=== PATIENT | male | born 1975 | race Caucasian/White ===

== ENCOUNTER 2016-07-14 09:55 | Emergency (ER) | payer MEDICARE ==
[2013-07-01 12:40] VITALS: BMI 22.6
[~2016-07-14 09:55] MED LIST: DILAUDID2 MG PO; HYDROCODONE-APA1 TA3 PO; NORCO 10/325 TA1 TA1 PO; PRAVACHOL20 MG PO; SOMA350 MG PO; TYLENOL325 MG PO; XANAX1 MG PO
[2016-07-14 11:00] LABS: BASOPHILS 0.4 % (0.0-2.0); EOSINOPHILS 0.8 % (0-7); HEMOGLOBIN 15.1 g/dL (13.5-17.5); IMMATURE GRANULOCYTES 1.6 % (0-5); LYMPHOCYTES 20.9 % (15-50); MCH 31.5 pg (26.0-34.0); MCHC 33.6 g/dL (31.0-37.0); MCV 93.8 fL (80.0-100.0); MEAN PLATELET VOLUME 9.8 fL (7.4-10.4); MONOCYTES 7.6 % (2-11); NEUTROPHILS 68.7 % (40-80); PLATELET COUNT 312 10x3/uL (130-400); RDW 13.9 % (11.5-14.5); WBC 12.6 10x3/uL (4.8-10.8)
[2016-07-14 11:04] LABS: APPEARANCE HAZY (CLEAR); BACTERIA MODERATE /hpf (NONE SEEN); BILIRUBIN NEGATIVE (NEGATIVE); COLOR YELLOW (YELLOW); GLUCOSE NEGATIVE (NEGATIVE); KETONE NEGATIVE (NEGATIVE); LEUKOCYTE ESTERASE TRACE (NEGATIVE); MUCUS <1+ /lpf (NONE SEEN); NITRITE NEGATIVE (NEGATIVE); PROTEIN NEGATIVE (NEGATIVE); UROBILINOGEN NORMAL (NORMAL)
[2016-07-14 11:17] LABS: ALBUMIN 3.1 g/dL (3.4-5.0); ALKALINE PHOSPHATASE 104 U/L (46-116); ALT (SGPT) 19 U/L (10-68); BILIRUBIN - TOTAL 0.25 mg/dL (0.2-1.3); CALC OSMOLALITY 274 mosm/kg (275-300); CARBON DIOXIDE 30.6 mmol/L (21.0-32.0); CHLORIDE - SERUM 103 mmol/L (98-107); CREATININE - SERUM 0.9 mg/dL (0.6-1.3); GLUCOSE 90 mg/dL (74-106); POTASSIUM - SERUM 4.2 mmol/L (3.5-5.1); PROTEIN - SERUM 7.2 g/dL (6.4-8.2); SODIUM 138 mmol/L (136-145); UREA NITROGEN 9 mg/dL (7-18); eGFR NON AFRICAN AMERICAN > 90 mL/min (90-120)
[2016-08-29 14:21] VITALS: BMI 21.0
== END 2016-07-14 11:21 | disposition home or self-care (01) ==
LOC: D.ER 09:55
PROVIDERS: Emergency Medicine; Physician Assistant Medical
DX: N39.0 Urinary tract infection, site not specified (principal); F17.200 Nicotine dependence, unspecified, uncomplicated; I10 Essential (primary) hypertension

== ENCOUNTER → 2016-07-19 09:53 | Outpatient (CLI) | payer MEDICARE ==
[2013-07-01 12:40] VITALS: BMI 22.6
[~2016-07-19 09:53] MED LIST changes: +CARAFATE1 G/10 ML PO; +FLAGYL500 MG PO; +OMEPRAZOLE40 MG PO; +OXY IR30 MG PO; +PROBIOTIC1 EAC1 PO; +VALIUM5 MG PO; +VANCOMYCIN250 MG/51 PO
[2016-07-22 03:06] LABS: OVA + PARASITE EXAM Final report (())
[2016-08-29 14:21] VITALS: BMI 21.0
== END | disposition home or self-care (01) ==
LOC: D.LAB 09:53
PROVIDERS: Internal Medicine Gastroenterology
DX: R19.7 Diarrhea, unspecified (principal); R10.9 Unspecified abdominal pain

== ENCOUNTER 2016-08-27 14:57 | Emergency (ER) | payer MEDICARE ==
[2013-07-01 12:40] VITALS: BMI 22.6
[~2016-08-27 14:57] MED LIST changes: -CARAFATE1 G/10 ML PO; -FLAGYL500 MG PO; -OMEPRAZOLE40 MG PO; -OXY IR30 MG PO; -PROBIOTIC1 EAC1 PO; -VALIUM5 MG PO; -VANCOMYCIN250 MG/51 PO
[2016-08-27 15:33] LABS: BASOPHILS 0.6 % (0.0-2.0); EOSINOPHILS 1.4 % (0-7); HEMATOCRIT 47.1 % (42.0-54.0); IMMATURE GRANULOCYTES 0.5 % (0-5); LYMPHOCYTES 33.1 % (15-50); MCH 30.9 pg (26.0-34.0); MCV 91.1 fL (80.0-100.0); MEAN PLATELET VOLUME 10.3 fL (7.4-10.4); MONOCYTES 7.6 % (2-11); NEUTROPHILS 56.8 % (40-80); PLATELET COUNT 278 10x3/uL (130-400); RBC 5.17 10x6/uL (4.20-6.10); RDW 14.1 % (11.5-14.5); WBC 8.8 10x3/uL (4.8-10.8)
[2016-08-27 19:20] LABS: APPEARANCE CLEAR (CLEAR); BILIRUBIN NEGATIVE (NEGATIVE); COLOR DK YELLOW (YELLOW); GLUCOSE NEGATIVE (NEGATIVE); KETONE NEGATIVE (NEGATIVE); LEUKOCYTE ESTERASE TRACE (NEGATIVE); NITRITE NEGATIVE (NEGATIVE); PROTEIN NEGATIVE (NEGATIVE); UROBILINOGEN NORMAL (NORMAL)
[2016-08-27 19:23] LABS: BACTERIA FEW /hpf (NONE SEEN); EPITHELIAL CELLS 0-5 /hpf (0-5); MUCUS <1+ /lpf (NONE SEEN); RED CELLS - URINE 0-5 /hpf (0-5); WHITE CELLS - URINE 0-5 /hpf (0-5)
[2016-08-28] MEDS ORDERED: FLAGYL500 MG PO (14:50)
[2016-08-28] MEDS ORDERED: VALIUM5 MG PO (14:50)
[2016-08-28] MEDS ORDERED: OXY IR30 MG PO (14:51)
[2016-08-28] MEDS ORDERED: OMEPRAZOLE40 MG PO (14:51)
== END 2016-08-27 19:57 | disposition home or self-care (01) ==
LOC: D.ER 14:57
PROVIDERS: Emergency Medicine
DX: R10.9 Unspecified abdominal pain (principal); R11.10 Vomiting, unspecified; F17.200 Nicotine dependence, unspecified, uncomplicated

== ENCOUNTER 2016-08-28 13:28 | Inpatient (IN) | payer MEDICARE ==
[~2016-08-28] VITALS: Ht 180.3 cm; Wt 68.5 kg
[2016-08-28 14:45] LABS: BASOPHILS 0.5 % (0.0-2.0); EOSINOPHILS 0.9 % (0-7); HEMATOCRIT 46.7 % (42.0-54.0); HEMOGLOBIN 15.8 g/dL (13.5-17.5); IMMATURE GRANULOCYTES 0.4 % (0-5); LYMPHOCYTES 33.7 % (15-50); MCH 30.9 pg (26.0-34.0); MCHC 33.8 g/dL (31.0-37.0); MCV 91.2 fL (80.0-100.0); MEAN PLATELET VOLUME 10.1 fL (7.4-10.4); MONOCYTES 8.3 % (2-11); NEUTROPHILS 56.2 % (40-80); PLATELET COUNT 266 10x3/uL (130-400); RBC 5.12 10x6/uL (4.20-6.10); WBC 10.9 10x3/uL (4.8-10.8)
[2016-08-28] MEDS ORDERED: FLAGYL500 MG PO (14:50)
[2016-08-28] MEDS ORDERED: VALIUM5 MG PO (14:50)
[2016-08-28] MEDS ORDERED: OMEPRAZOLE40 MG PO (14:51)
[2016-08-28] MEDS ORDERED: OXY IR30 MG PO (14:51)
--- NOTE | 2016-08-28 14:55 | NUR ---
IV ACCESS-22 GAUGE INSERTED IN LEFT HAND FOR IV ACCESS. GYPSY ABREU RN
--- NOTE | 2016-08-28 15:00 | NUR ---
Direct admit from Dr. Barber office for abdominal pain. Verbalized name and . Patient obtained stool specimen. Contact isolation for possible C DIFF.
[2016-08-28 15:05] VITALS: BP 144/85; BMI 21.1
[2016-08-28 15:07] LABS: ALBUMIN 3.5 g/dL (3.4-5.0); ALKALINE PHOSPHATASE 93 U/L (46-116); ALT (SGPT) 21 U/L (10-68); BILIRUBIN - TOTAL 0.33 mg/dL (0.2-1.3); CALC OSMOLALITY 280 mosm/kg (275-300); CARBON DIOXIDE 27.6 mmol/L (21.0-32.0); CHLORIDE - SERUM 105 mmol/L (98-107); CREATININE - SERUM 0.9 mg/dL (0.6-1.3); GLUCOSE 111 mg/dL (74-106); POTASSIUM - SERUM 3.7 mmol/L (3.5-5.1); PROTEIN - SERUM 6.9 g/dL (6.4-8.2); SODIUM 142 mmol/L (136-145); UREA NITROGEN 5 mg/dL (7-18); eGFR NON AFRICAN AMERICAN > 90 mL/min (90-120)
[2016-08-28 17:08] VITALS: BP 144/88
--- NOTE | 2016-08-28 19:35 | NUR ---
RECIEVED SHIFT REPORT. PT IS LYING IN BED. ALERT AND ORIENTED AND ABLE TO VERBALIZE NEEDS. IV IS PATENT AND FLUIDS ARE RUNNING PER ORDER. SCD'S ON. PT IS AMBULATORY BUT WAS INSTRUCTED TO CALL FOR ANY ASSISTANCE NEEDED. ISOLATION PRECAUTIONS IN PLACE. PT STATES PAIN IS 5/10. NO NEEDS ARE VERBALIZED AT THIS TIME. WILL CONTINUE TO MONITOR. SIDE RAILS ARE UP X 2. BED IS IN LOWEST POSITION. CALL LIGHT IS WITHIN REACH.
[2016-08-28 20:00] VITALS: BP 109/72
--- NOTE | 2016-08-28 21:19 | NUR ---
SHIFT ASSESSMENT COMPLETED. NIGHT MEDS GIVEN WITH NO PROBLEMS. NO NEEDS ARE VOICED. WILL MONITOR. SIDE RAILS X 2. BED LOW. CALL LIGHT IN REACH.
[2016-08-29 04:00] VITALS: BP 114/80
[2016-08-29 05:50] LABS: BASOPHILS 0.4 % (0.0-2.0); HEMATOCRIT 42.4 % (42.0-54.0); HEMOGLOBIN 14.1 g/dL (13.5-17.5); IMMATURE GRANULOCYTES 0.4 % (0-5); LYMPHOCYTES 42.3 % (15-50); MCH 30.8 pg (26.0-34.0); MCHC 33.3 g/dL (31.0-37.0); MCV 92.6 fL (80.0-100.0); MONOCYTES 9.8 % (2-11); NEUTROPHILS 45.1 % (40-80); PLATELET COUNT 248 10x3/uL (130-400); RBC 4.58 10x6/uL (4.20-6.10); RDW 14.3 % (11.5-14.5); WBC 8.9 10x3/uL (4.8-10.8)
[2016-08-29 06:01] LABS: ALBUMIN 2.9 g/dL (3.4-5.0); ALKALINE PHOSPHATASE 77 U/L (46-116); ALT (SGPT) 21 U/L (10-68); BILIRUBIN - TOTAL 0.36 mg/dL (0.2-1.3); CALC OSMOLALITY 277 mosm/kg (275-300); CALCIUM 8.4 mg/dL (8.5-10.1); CARBON DIOXIDE 27.8 mmol/L (21.0-32.0); CHLORIDE - SERUM 106 mmol/L (98-107); CREATININE - SERUM 0.8 mg/dL (0.6-1.3); GLUCOSE 99 mg/dL (74-106); POTASSIUM - SERUM 3.6 mmol/L (3.5-5.1); PROTEIN - SERUM 5.8 g/dL (6.4-8.2); SODIUM 141 mmol/L (136-145); UREA NITROGEN 5 mg/dL (7-18); eGFR NON AFRICAN AMERICAN > 90 mL/min (90-120)
--- NOTE | 2016-08-29 07:30 | NUR ---
REPORT RECEIVED FROM SINGLE FOLD MACHINE OPERATOR NURSE. CALL LIGHT IN REACH.
--- NOTE | 2016-08-29 08:34 | NUR ---
ASSESSMENT COMPLETED. DILAUDID IV WITH AM MEDS. ORAL CONTRAST FOR CT GIVEN. REFUSES SCDs AT THIS TIME. PASSWORD OBTAINED. CALL LIGHT IN REACH. WILL CONTINUE WITH PLAN OF CARE.
[2016-08-29 09:09] VITALS: BP 114/59
--- NOTE | 2016-08-29 10:20 | NUR ---
STATES PAIN HAS DECREASED TO A 4. WAITING FOR CT SCAN.
--- NOTE | 2016-08-29 12:57 | NUR ---
FLAGYL IVPB AND FLAGYL IVP. CALL LIGHT IN REACH.
[2016-08-29 13:06] VITALS: BP 122/78
[2016-08-29 14:21] VITALS: Ht 180.3 cm; Wt 68.5 kg
--- NOTE | 2016-08-29 14:44 | NUR ---
PATIENT IN BED WITH NO COMPLAINTS AT THIS TIME. LAYING ON SIDE WITH CALL LIGHT WITHIN REACH.
--- NOTE | 2016-08-29 15:30 | NUR ---
NO NEEDS VOICED AT THIS TIME. CALL LIGHT IN REACH.
[2016-08-29 16:32] VITALS: BP 115/68
--- NOTE | 2016-08-29 17:06 | NUR ---
CARLO IVP WITH AFTERNOON MEDS.
--- NOTE | 2016-08-29 18:05 | NUR ---
NO CHANGES IN INITIAL ASSESSMENT. CALL LIGHT IN REACH. WILL CONTINUE WITH PLAN OF CARE.
[2016-08-29 19:00] VITALS: BP 130/73
--- NOTE | 2016-08-29 19:00 | NUR ---
BEDSIDE REPORT RECEIVED AND CARE OF PT ASSUMED. PT SITTING UP IN BED WATCHING TV. IV IN LEFT HAND PATENT WITH NS INFUSING AT 100 ML / HR. WILL MONITOR CLOSELY FOR NEEDS. CALL LIGHT WITHIN REACH.
--- NOTE | 2016-08-29 21:38 | NUR ---
HS MEDICATIONS GIVEN TO INCLUDE VALIUM AND DILAUDID PER PRN ORDER, PER PT REQUEST FOR PAIN AND ANXIETY. WILL MONITOR FOR EFFECTIVENESS. SIDE RAILS UP X2 FOR SAFETY.
--- NOTE | 2016-08-29 23:50 | NUR ---
GAVE DILAUDID IVP PER PT REQUEST, PER PRN ORDER FOR PAIN AT LEVEL 8/10. WILL CONTINUE TO MONITOR FOR NEEDS. SIDE RAILS UP X2 FOR SAFETY.
--- NOTE | 2016-08-30 01:50 | NUR ---
GAVE DILAUDID IVP PER PRN ORDER, PER PT REQUEST FOR PAIN AT LEVEL 8/10. WILL MONITOR FOR EFFECTIVENESS. SIDE RAILS UP X2 FOR SAFETY.
--- NOTE | 2016-08-30 02:19 | NUR ---
PT RESTING QUIETLY AT THIS TIME, WITH NO MOANING OR FACIAL GRIMACING. WILL CONTINUE TO MONITOR FOR NEEDS.
[2016-08-30 04:00] VITALS: BP 140/71
[2016-08-30 05:50] LABS: BASOPHILS 0.5 % (0.0-2.0); EOSINOPHILS 1.1 % (0-7); HEMATOCRIT 40.8 % (42.0-54.0); HEMOGLOBIN 13.2 g/dL (13.5-17.5); IMMATURE GRANULOCYTES 0.3 % (0-5); LYMPHOCYTES 41.4 % (15-50); MCH 30.1 pg (26.0-34.0); MCHC 32.4 g/dL (31.0-37.0); MCV 92.9 fL (80.0-100.0); MEAN PLATELET VOLUME 10.6 fL (7.4-10.4); MONOCYTES 7.2 % (2-11); NEUTROPHILS 49.5 % (40-80); PLATELET COUNT 225 10x3/uL (130-400); RBC 4.39 10x6/uL (4.20-6.10); RDW 14.3 % (11.5-14.5); WBC 9.4 10x3/uL (4.8-10.8)
[2016-08-30 06:11] LABS: ALBUMIN 2.8 g/dL (3.4-5.0); ALKALINE PHOSPHATASE 74 U/L (46-116); ALT (SGPT) 20 U/L (10-68); BILIRUBIN - TOTAL 0.32 mg/dL (0.2-1.3); CALC OSMOLALITY 277 mosm/kg (275-300); CALCIUM 8.2 mg/dL (8.5-10.1); CARBON DIOXIDE 27.3 mmol/L (21.0-32.0); CHLORIDE - SERUM 107 mmol/L (98-107); CREATININE - SERUM 0.7 mg/dL (0.6-1.3); GLUCOSE 97 mg/dL (74-106); POTASSIUM - SERUM 3.5 mmol/L (3.5-5.1); PROTEIN - SERUM 5.7 g/dL (6.4-8.2); SODIUM 141 mmol/L (136-145); UREA NITROGEN 4 mg/dL (7-18); eGFR NON AFRICAN AMERICAN > 90 mL/min (90-120)
[2016-08-30 08:46] VITALS: BP 113/64
--- NOTE | 2016-08-30 08:53 | NUR ---
MEDS ORDERED FOR PAIN,SEE MAR
--- NOTE | 2016-08-30 09:00 | NUR ---
ASSESSMENT PER FLOW SHEET.PT WITHOUT DISTRESS.C/O ABDOMINAL BURNING AND DISCOMFORT.MONITOR
[2016-08-30 11:30] VITALS: BP 114/69
--- NOTE | 2016-08-30 11:48 | NUR ---
MEDS ORDERED PER MAR
--- NOTE | 2016-08-30 12:45 | NUR ---
MEDS ORDERED FOR NAUSEA,SEE MAR
[2016-08-30 16:03] VITALS: BP 105/68
--- NOTE | 2016-08-30 17:41 | NUR ---
PAIN A LITTLE BETTER.GIONG TO EAT DINNER TRAY.REMAINS WITHOUT CHANGE FROM AM ASSESSMENT.CONT PLAN OF CARE
[2016-08-30 23:00] VITALS: BP 110/73
[2016-08-31 06:29] LABS: BASOPHILS 0.6 % (0.0-2.0); EOSINOPHILS 1.6 % (0-7); HEMOGLOBIN 12.7 g/dL (13.5-17.5); IMMATURE GRANULOCYTES 0.2 % (0-5); LYMPHOCYTES 42.9 % (15-50); MCH 30.2 pg (26.0-34.0); MCHC 32.6 g/dL (31.0-37.0); MCV 92.6 fL (80.0-100.0); MONOCYTES 8.6 % (2-11); NEUTROPHILS 46.1 % (40-80); PLATELET COUNT 211 10x3/uL (130-400); RBC 4.21 10x6/uL (4.20-6.10); RDW 14.4 % (11.5-14.5); WBC 8.7 10x3/uL (4.8-10.8)
[2016-08-31 06:50] LABS: ALBUMIN 2.8 g/dL (3.4-5.0); ALKALINE PHOSPHATASE 72 U/L (46-116); ALT (SGPT) 20 U/L (10-68); CALCIUM 8.2 mg/dL (8.5-10.1); CHLORIDE - SERUM 104 mmol/L (98-107); GLUCOSE 97 mg/dL (74-106); POTASSIUM - SERUM 3.4 mmol/L (3.5-5.1); PROTEIN - SERUM 5.5 g/dL (6.4-8.2); SODIUM 138 mmol/L (136-145)
[2016-08-31 06:53] LABS: CALC OSMOLALITY 274 mosm/kg (275-300); CREATININE - SERUM 0.9 mg/dL (0.6-1.3); UREA NITROGEN 10 mg/dL (7-18); eGFR NON AFRICAN AMERICAN > 90 mL/min (90-120)
--- NOTE | 2016-08-31 07:30 | NUR ---
ASSESSMENT PER FLOW SHEET.REQUEST IV PAIN MEDS FOR PAIN 9/10 TO ABDOMEN.REMAINS WITHOUT NAUSEA AND DENIES LOOSE STOOLS.BUTT PASTE APPLIED TO INNER BUTTOCKS PER PT.STATES SORE FROM LOOSE STOOLS PREVIOUSLY. CALL LIGHT IN REACH
[2016-08-31 07:50] VITALS: BP 107/63
--- NOTE | 2016-08-31 10:27 | NUR ---
NUTRITION MONITORING & EVAL CHART REVIEWED. PT REMAINS IN ISOLATION. DIET ADVANCED TO FULL LIQUID. WILL MONITOR DIET ADVANCEMENT, PT PROGRESS. RD FOLLOWING
--- NOTE | 2016-08-31 10:44 | NUR ---
UP TO WALK IN HALLS.NO LOOSE STOOLS THIS AM.TOLERATED BREAKFAST.STILL C/O ABDOMINAL PAIN 02/17.ALSO C/O LOWER BACK PAIN.INSTRUCTED OOB AND AMBULATION.
--- NOTE | 2016-08-31 11:01 | NUR ---
Patient Name: JASEN RUEDA Admission Status: Elective Accout number: [id number] Admission Date: 08-28-2016 : 1975 Admission Diagnosis:UNSPECIFIED ABDOMINAL PAIN Attending: BERENICE Current LOS: 3 Anticipated DC Date: 09-03-2016 Planned Disposition: Home Primary Insurance: MEDICARE A & B Discharge Planning Comments: CM MET WITH PATIENT REGARDING D/C NEEDS AND PLANS. PATIENT STATED HE HAS 5 STEPS W/RAILS TO ENTER HIS HOME AND NO STAIRS INSIDE. PATIENT STATED SOMEONE WITH HIS FAMILY WILL DRIVE HIM HOME AT DISCHARGE. PATIENT STATED HE IS INDEPENDENT WITH HIS CARE AND HAS A CANE, AND BACK BRACE AT HOME IF NEEDED. PATIENTS PCP IS DR. SINGH AND PHARMACY IS [facility]. PATIENT IS REFUSING HOME HEALTH AND HAS NO OTHER NEEDS FOR DISCHARGE. CM WILL CONTINUE TO FOLLOW PATIENT WITH D/C NEEDS AND PLANS. PCP DR. SAMANTHA ROSADO [facility]- [phone] KORI RUEDA () [phone] Firmware Software Verification Engineer: Jaleesa Brown Is the patient Alert and Oriented? Yes 0 * How many steps to enter\exit or inside your home? 5 W/RAILS 0 * PCP DR. SINGH 0 * Pharmacy [facility] [address] 0 * Preadmission Environment Home with Family 0 * ADLs Independent 0 * Equipment Cane 0 * Other Equipment BACK BRACE 0 * List name and contact numbers for known caregivers / representatives who currently or will assist patient after discharge: KORI RUEDA (SPOUSE) [phone] ONELIA RUEDA (GRANDMOTHER) [phone] 0 * Community resources currently utilized None 0 * Additional services required to return to the preadmission environment? Yes 0 * Can the patient safely return to the preadmission environment? Yes 0 * Has this patient been hospitalized within the prior 30 days at any hospital? No 0 Grand Total: 0
[2016-08-31] MEDS ORDERED: OXY IR30 MG PO (12:19)
[2016-08-31] MEDS ORDERED: VALIUM5 MG PO (12:19)
[2016-08-31] MEDS ORDERED: FLAGYL500 MG PO (12:19)
[2016-08-31] MEDS ORDERED: VANCOMYCIN250 MG/51 PO (12:19)
[2016-08-31] MEDS ORDERED: CARAFATE1 G/10 ML PO (12:20)
[2016-08-31] MEDS ORDERED: PROBIOTIC1 EAC1 PO (12:20)
[2016-08-31 13:01] VITALS: BP 129/73
--- NOTE | 2016-08-31 13:03 | NUR ---
CM REASSESSMENT NOTE: PATIENT IS DISCHARGING HOME AND FAMILY WILL DRIVE HIM. PATIENT DENIED HOME HEALTH OR ANY OTHER NEEDS FOR DISCHARGE. D/C IMM NOTICE SERVED TODAY.
--- NOTE | 2016-08-31 14:15 | NUR ---
DISCHARGE INSTRUCTIONS,STATES UNDERSTANDING.IV DCD WITH CATH INTACT.DECLINED WHEELCHAIR.LEFT UNIT AMBULATORY FOR TRANSPORT HOME.
--- NOTE | 2016-09-25 10:29 | HP ---
PATIENT: JASEN RUEDA JR MEDICAL RECORD: [id number] ACCOUNT: [id number] LOCATION:[id number] : [birth year] ADMISSION DATE: 08/28/16 HISTORY AND PHYSICAL EXAMINATION HISTORY OF PRESENT ILLNESS: A 40-year-old white male, who presents to the clinic upon day of admission with complaint of a cramping abdominal pain. The patient has had several scopes done by GI within the last month. He had an EGD done on 08/14/2016, which showed some increasing amount of gastritis, but no evidence of eosinophilia. He then went back in for a colonoscopy on August 21 and had evidence of some mild polyps that were taking care of. He had a stool test ____, which did come back showing positive for C. diff. The patient had 1 tubular adenoma that was noted. The patient has had antibiotics for 7 days and he has been off the antibiotics for at least 2 days now and has been complaining of increasing cramping abdominal pain, diarrhea and nausea. He is on chronic pain medicine for his back and was in the Emergency Room last evening with evidence of dark urine and abdominal pain, had no elevated white count, but today he has been unable to control the stool and he has been on Flagyl and may have some resistance on this. PAST MEDICAL HISTORY: Significant for allergies, GERD, hematochezia, rheumatoid arthritis, migraines, chronic pain, COPD and anxiety. PAST SURGICAL HISTORY: Includes a vasectomy and testicular removal. He also had hand laceration. He also had a left orchiectomy. SOCIAL HISTORY: The patient does continue to smoke at least a pack per day, rare alcohol intake. ALLERGIES: HE IS ALLERGIC TO NORVASC, TOPROL, AND LISINOPRIL. MEDICATIONS: Include oxycodone, Valium, Prilosec, methocarbamol, gabapentin and the present Flagyl. REVIEW OF SYSTEMS: As above. He has had subjective temperature, n.p.o. for the last 36 hours. He is having cramping abdominal pain, nausea and he has dry heaving in the room at the present time. PHYSICAL EXAMINATION: VITAL SIGNS: At the time of history and physical shows a blood pressure 148/98, pulse of 95, respirations were 18, he has pain indexes of 10. GENERAL: He is resting on the bed, but appears ill. He is a well-developed, well-nourished 40-year-old unkempt ill-appearing white male that has some dental caries. HEENT: Pupils are equal, round, reactive to light. Extraocular movements are intact with allergic shiners noted. Tacky mucous membranes noted. NECK: No cervical or pharyngeal adenopathy. No nuchal rigidity. LUNGS: Coarse breath sounds heard bilaterally. HEART: Is tachycardia, regular rate and rhythm with a I/ systolic ejection murmur. ABDOMEN: Soft. Guarding is present. He has got exquisite tenderness in bilateral upper quadrants. No rebound tenderness. Negative heel tap, positive bowel sounds. No masses. EXTREMITIES: He has difficult to ambulate. He has to walk with a hunched posture. He does have some crepitus in his knees bilaterally. KUB shows HISTORY AND PHYSICAL [id number] JASEN RUEDA JR increasing air-fluid levels. LABORATORY DATA: CBC is obtained today. ASSESSMENT: 1. Abdominal pain. 2. Clostridium difficile. 3. Rheumatoid arthritis. 4. Chronic pain medication. 5. Dental caries. PLAN: The patient will be admitted to the hospital, isolation protocol to be utilized. We will consult GI with Dr. Orr. We will place the patient on oral vancomycin as well as IV Flagyl. Check laboratory appropriately. TRANSINT:[id number] Voice Confirmation ID: [id number] DOCUMENT ID: [id number] YANI SINGH MD at 1029 CC: [id number] DICTATION DATE: 08/28/16 1252 RUG FRAME MOUNTER: 08/28/16 1405 DIS IN 08/31/16 [place] [id number] [place] [id number]
== END 2016-08-31 14:16 | disposition home or self-care (01) | DRG 373 ==
LOC: D.MS 13:28 → D.WS 13:28 → D.MS 14:05
PROVIDERS: Family Medicine; ADMIT Family Medicine
DX: A04.7 Enterocolitis due to Clostridium difficile (principal); K02.9 Dental caries, unspecified; R10.13 Epigastric pain; R00.0 Tachycardia, unspecified; K21.9 Gastro-esophageal reflux disease without esophagitis; M06.9 Rheumatoid arthritis, unspecified; G89.29 Other chronic pain; M54.9 Dorsalgia, unspecified; J44.9 Chronic obstructive pulmonary disease, unspecified; F41.9 Anxiety disorder, unspecified; F17.200 Nicotine dependence, unspecified, uncomplicated

== ENCOUNTER → 2016-09-27 15:11 | Outpatient (CLI) | payer MEDICARE ==
[2016-08-29 14:21] VITALS: BMI 21.0
[~2016-09-27 15:11] MED LIST changes: +CARAFATE1 G/10 ML PO; +FLAGYL500 MG PO; +OMEPRAZOLE40 MG PO; +OXY IR30 MG PO; +PROBIOTIC1 EAC1 PO; +VALIUM5 MG PO; +VANCOMYCIN250 MG/51 PO
[2016-09-27 16:11] LABS: ALBUMIN 3.7 g/dL (3.4-5.0); ALKALINE PHOSPHATASE 121 U/L (46-116); ALT (SGPT) 24 U/L (10-68); BILIRUBIN - TOTAL 0.63 mg/dL (0.2-1.3); CALC OSMOLALITY 282 mosm/kg (275-300); CALCIUM 9.3 mg/dL (8.5-10.1); CARBON DIOXIDE 27.5 mmol/L (21.0-32.0); CHLORIDE - SERUM 104 mmol/L (98-107); CREATININE - SERUM 0.8 mg/dL (0.6-1.3); GLUCOSE 102 mg/dL (74-106); POTASSIUM - SERUM 3.9 mmol/L (3.5-5.1); PROTEIN - SERUM 7.8 g/dL (6.4-8.2); SODIUM 143 mmol/L (136-145); UREA NITROGEN 7 mg/dL (7-18); eGFR NON AFRICAN AMERICAN > 90 mL/min (90-120)
[2016-09-28 09:17] LABS: HEPATITIS C ANTIBODY 0.7 (0.0-0.9)
== END | disposition home or self-care (01) ==
LOC: D.LAB 15:11
PROVIDERS: Internal Medicine Gastroenterology
DX: R19.7 Diarrhea, unspecified (principal); R10.9 Unspecified abdominal pain; R74.8 Abnormal levels of other serum enzymes

== ENCOUNTER → 2016-10-02 07:56 | Outpatient (CLI) | payer MEDICARE ==
[2016-08-29 14:21] VITALS: BMI 21.0
== END | disposition home or self-care (01) ==
LOC: D.CT 07:56
DX: R10.9 Unspecified abdominal pain (principal); Z87.19 Personal history of other diseases of the digestive system

== ENCOUNTER 2016-10-23 21:44 | Emergency (ER) | payer MEDICARE ==
[2016-08-29 14:21] VITALS: BMI 21.0
[2016-10-23 22:37] LABS: BASOPHILS 0.6 % (0-2); EOSINOPHILS 2.2 % (0-7); HEMATOCRIT 45.6 % (42.0-54.0); HEMOGLOBIN 15.6 g/dL (13.5-17.5); IMMATURE GRANULOCYTES 0.4 % (0-5); MCH 31.1 pg (26.0-34.0); MCHC 34.2 g/dL (31.0-37.0); MEAN PLATELET VOLUME 9.7 fL (7.4-10.4); NEUTROPHILS 47.8 % (40-80); PLATELET COUNT 250 10x3/uL (130-400); RBC 5.01 10x6/uL (4.20-6.10); RDW 13.6 % (11.5-14.5); WBC 9.5 10x3/uL (4.8-10.8)
[2016-10-23 22:57] LABS: ALBUMIN 3.6 g/dL (3.4-5.0); ALKALINE PHOSPHATASE 109 U/L (46-116); ALT (SGPT) 30 U/L (10-68); BILIRUBIN - TOTAL 0.24 mg/dL (0.2-1.3); CALC OSMOLALITY 280 mosm/kg (275-300); CALCIUM 9.2 mg/dL (8.5-10.1); CARBON DIOXIDE 28.2 mmol/L (21.0-32.0); CHLORIDE - SERUM 105 mmol/L (98-107); CREATININE - SERUM 1.3 mg/dL (0.6-1.3); GLUCOSE 99 mg/dL (74-106); POTASSIUM - SERUM 3.8 mmol/L (3.5-5.1); PROTEIN - SERUM 7.4 g/dL (6.4-8.2); SODIUM 141 mmol/L (136-145); UREA NITROGEN 13 mg/dL (7-18); eGFR NON AFRICAN AMERICAN 65 mL/min (90-120)
[2016-10-23 23:01] LABS: CREATINE KINASE 28 UL (21-232)
[2016-10-23 23:09] LABS: TROPONIN-I < 0.017 ng/mL (0.000-0.060)
[2016-10-23 23:43] LABS: MAGNESIUM - SERUM 1.9 mg/dL (1.8-2.4); PRO BNP 49 pg/mL (0-125)
== END 2016-10-24 00:26 | disposition home or self-care (01) ==
LOC: D.ER 21:44
PROVIDERS: Emergency Medicine
DX: R09.1 Pleurisy (principal); J44.9 Chronic obstructive pulmonary disease, unspecified; I10 Essential (primary) hypertension; F17.200 Nicotine dependence, unspecified, uncomplicated

== ENCOUNTER 2016-12-25 13:12 | Emergency (ER) | payer MEDICARE ==
[2016-08-29 14:21] VITALS: BMI 21.0
[2016-12-25 14:20] LABS: APPEARANCE CLEAR (CLEAR); BILIRUBIN NEGATIVE (NEGATIVE); COLOR YELLOW (YELLOW); GLUCOSE NEGATIVE (NEGATIVE); KETONE NEGATIVE (NEGATIVE); LEUKOCYTE ESTERASE NEGATIVE (NEGATIVE); NITRITE NEGATIVE (NEGATIVE); PROTEIN NEGATIVE (NEGATIVE); UROBILINOGEN NORMAL (NORMAL)
[2016-12-25 14:27] LABS: BASOPHILS 0.2 % (0-2); EOSINOPHILS 0.5 % (0-7); HEMATOCRIT 42.3 % (42.0-54.0); HEMOGLOBIN 14.8 g/dL (13.5-17.5); IMMATURE GRANULOCYTES 0.5 % (0-5); LYMPHOCYTES 20.8 % (15-50); MCH 32.1 pg (26.0-34.0); MCV 91.8 fL (80.0-100.0); MEAN PLATELET VOLUME 9.8 fL (7.4-10.4); MONOCYTES 4.6 % (2-11); NEUTROPHILS 73.4 % (40-80); PLATELET COUNT 245 10x3/uL (130-400); RBC 4.61 10x6/uL (4.20-6.10); RDW 13.5 % (11.5-14.5); WBC 15.1 10x3/uL (4.8-10.8)
[2016-12-25 14:29] LABS: UDS - AMPHET NEGATIVE QUAL (NEGATIVE); UDS - BARB NEGATIVE QUAL (NEGATIVE); UDS - BENZO NEGATIVE QUAL (NEGATIVE); UDS - COCAINE NEGATIVE QUAL (NEGATIVE); UDS - METH NEGATIVE QUAL (NEGATIVE); UDS - OPIATE POSITIVE QUAL (NEGATIVE); UDS - PCP NEGATIVE QUAL (NEGATIVE); UDS - THC NEGATIVE QUAL (NEGATIVE)
[2016-12-25 14:47] LABS: ALBUMIN 3.5 g/dL (3.4-5.0); ALKALINE PHOSPHATASE 116 U/L (46-116); ALT (SGPT) 14 U/L (10-68); BILIRUBIN - TOTAL 0.42 mg/dL (0.2-1.3); CALC OSMOLALITY 276 mosm/kg (275-300); CALCIUM 8.9 mg/dL (8.5-10.1); CARBON DIOXIDE 25.7 mmol/L (21.0-32.0); CHLORIDE - SERUM 102 mmol/L (98-107); CREATININE - SERUM 0.9 mg/dL (0.6-1.3); GLUCOSE 108 mg/dL (74-106); POTASSIUM - SERUM 3.5 mmol/L (3.5-5.1); PROTEIN - SERUM 6.8 g/dL (6.4-8.2); SODIUM 139 mmol/L (136-145); UREA NITROGEN 6 mg/dL (7-18); eGFR NON AFRICAN AMERICAN > 90 mL/min (90-120)
[2016-12-25 15:03] LABS: CKMB 0.1 U/L (0.0-3.6); CREATINE KINASE 78 UL (21-232)
[2016-12-25 15:08] LABS: TROPONIN-I < 0.017 ng/mL (0.000-0.060)
== END 2016-12-25 18:48 | disposition home or self-care (01) ==
LOC: D.ER 13:12
PROVIDERS: Emergency Medicine
DX: R07.9 Chest pain, unspecified (principal); R10.9 Unspecified abdominal pain; I10 Essential (primary) hypertension; J44.9 Chronic obstructive pulmonary disease, unspecified; F17.200 Nicotine dependence, unspecified, uncomplicated

== ENCOUNTER 2017-03-12 12:28 | Emergency (ER) | payer MEDICARE ==
[2016-08-29 14:21] VITALS: BMI 21.0
[2017-03-12 15:18] LABS: BASOPHILS 0.3 % (0-2); EOSINOPHILS 0.8 % (0-7); HEMOGLOBIN 14.9 g/dL (13.5-17.5); IMMATURE GRANULOCYTES 0.4 % (0-5); LYMPHOCYTES 21.1 % (15-50); MCH 31.9 pg (26.0-34.0); MCHC 33.9 g/dL (31.0-37.0); MCV 94.2 fL (80.0-100.0); MEAN PLATELET VOLUME 9.5 fL (7.4-10.4); MONOCYTES 5.6 % (2-11); NEUTROPHILS 71.8 % (40-80); PLATELET COUNT 253 10x3/uL (130-400); RBC 4.67 10x6/uL (4.20-6.10); RDW 13.2 % (11.5-14.5); WBC 12.3 10x3/uL (4.8-10.8)
[2017-03-12 16:08] LABS: ALBUMIN 3.5 g/dL (3.4-5.0); ALKALINE PHOSPHATASE 85 U/L (46-116); ALT (SGPT) 13 U/L (10-68); BILIRUBIN - TOTAL 0.29 mg/dL (0.2-1.3); CALC OSMOLALITY 276 mosm/kg (275-300); CALCIUM 9.1 mg/dL (8.5-10.1); CARBON DIOXIDE 27.3 mmol/L (21.0-32.0); CHLORIDE - SERUM 105 mmol/L (98-107); CREATININE - SERUM 0.8 mg/dL (0.6-1.3); GLUCOSE 95 mg/dL (74-106); PROTEIN - SERUM 6.6 g/dL (6.4-8.2); SODIUM 140 mmol/L (136-145); UREA NITROGEN 7 mg/dL (7-18); eGFR NON AFRICAN AMERICAN > 90 mL/min (90-120)
[2017-03-12 16:23] LABS: CREATINE KINASE 54 UL (21-232)
[2017-03-12 16:25] LABS: TROPONIN-I < 0.017 ng/mL (0.000-0.060)
== END 2017-03-12 17:02 | disposition home or self-care (01) ==
LOC: D.ER 12:28
PROVIDERS: Family Medicine
DX: G51.0 Bell's palsy (principal); F17.200 Nicotine dependence, unspecified, uncomplicated

== ENCOUNTER 2017-09-22 10:19 | Emergency (ER) | payer MEDICARE ==
[2016-08-29 14:21] VITALS: BMI 21.0
[2017-09-22 10:53] LABS: BASOPHILS 0.4 % (0-2); EOSINOPHILS 1.4 % (0-7); HEMATOCRIT 46.1 % (42.0-54.0); HEMOGLOBIN 15.7 g/dL (13.5-17.5); IMMATURE GRANULOCYTES 0.6 % (0-5); MCH 31.6 pg (26.0-34.0); MCHC 34.1 g/dL (31.0-37.0); MCV 92.8 fL (80.0-100.0); MEAN PLATELET VOLUME 9.6 fL (7.4-10.4); MONOCYTES 8.2 % (2-11); NEUTROPHILS 57.4 % (40-80); PLATELET COUNT 283 10x3/uL (130-400); RBC 4.97 10x6/uL (4.20-6.10); RDW 13.5 % (11.5-14.5); WBC 9.8 10x3/uL (4.8-10.8)
[2017-09-22 11:26] LABS: ALBUMIN 3.8 g/dL (3.4-5.0); ALKALINE PHOSPHATASE 95 U/L (46-116); ALT (SGPT) 30 U/L (10-68); CALC OSMOLALITY 273 mosm/kg (275-300); CALCIUM 9.5 mg/dL (8.5-10.1); CARBON DIOXIDE 30.5 mmol/L (21.0-32.0); CHLORIDE - SERUM 102 mmol/L (98-107); CREATININE - SERUM 0.9 mg/dL (0.6-1.3); GLUCOSE 98 mg/dL (74-106); POTASSIUM - SERUM 4.2 mmol/L (3.5-5.1); PROTEIN - SERUM 7.3 g/dL (6.4-8.2); SODIUM 138 mmol/L (136-145); UREA NITROGEN 7 mg/dL (7-18); eGFR NON AFRICAN AMERICAN > 90 mL/min (90-120)
[2017-09-22 12:39] LABS: AMYLASE - SERUM 30 U/L (25-115)
[2017-09-22 12:43] LABS: LIPASE 47 U/L (73-393)
== END 2017-09-22 13:20 | disposition home or self-care (01) ==
LOC: D.ER 10:19
PROVIDERS: Family Medicine; Nurse Practitioner Family
DX: K29.00 Acute gastritis without bleeding (principal); K59.00 Constipation, unspecified; F17.200 Nicotine dependence, unspecified, uncomplicated; I10 Essential (primary) hypertension; J44.9 Chronic obstructive pulmonary disease, unspecified

== ENCOUNTER 2017-11-05 05:47 | Outpatient (CLI) | payer MEDICARE ==
[~2017-11-05] VITALS: Ht 180.3 cm; Wt 77.3 kg
[2017-11-05 06:23] LABS: BASOPHILS 0.6 % (0-2); EOSINOPHILS 2.4 % (0-7); HEMOGLOBIN 13.7 g/dL (13.5-17.5); IMMATURE GRANULOCYTES 0.1 % (0-5); MCH 31.6 pg (26.0-34.0); MCHC 33.4 g/dL (31.0-37.0); MCV 94.5 fL (80.0-100.0); MEAN PLATELET VOLUME 9.6 fL (7.4-10.4); MONOCYTES 8.6 % (2-11); NEUTROPHILS 51.3 % (40-80); RBC 4.34 10x6/uL (4.20-6.10); RDW 13.8 % (11.5-14.5); WBC 7.1 10x3/uL (4.8-10.8)
[2017-11-05] MEDS ORDERED: HYDROCODON-ACE1 EAC9 PO (06:26)
[2017-11-05] MEDS ORDERED: COREG6.25 MG PO (06:27)
[2017-11-05] MEDS ORDERED: COMBIVENT RESPIM4 GM INH (06:28)
[2017-11-05] MEDS ORDERED: BAYER CHEWABLE81 MG PO (06:29)
[2017-11-05 06:40] LABS: APTT 27.9 SECONDS (22.8-39.4); INR 0.96 (0.85-1.17); PROTIME 12.4 SECONDS (11.6-15.0)
[2017-11-05 06:41] LABS: PLATELET COUNT 195 10x3/uL (130-400)
[2017-11-05 06:45] VITALS: Ht 180.3 cm; Wt 77.3 kg
[2017-11-05 06:50] LABS: CALC OSMOLALITY 284 mosm/kg (275-300); CALCIUM 8.6 mg/dL (8.5-10.1); CARBON DIOXIDE 29.4 mmol/L (21.0-32.0); CHLORIDE - SERUM 107 mmol/L (98-107); GLUCOSE 93 mg/dL (74-106); POTASSIUM - SERUM 3.5 mmol/L (3.5-5.1); SODIUM 143 mmol/L (136-145); UREA NITROGEN 12 mg/dL (7-18); eGFR NON AFRICAN AMERICAN 87 mL/min (90-120)
== END 2017-11-05 12:55 | disposition home or self-care (01) ==
LOC: D.SP 05:47
PROVIDERS: Specialist
DX: D72.829 Elevated white blood cell count, unspecified (principal); Z01.812 Encounter for preprocedural laboratory examination; I10 Essential (primary) hypertension; J44.9 Chronic obstructive pulmonary disease, unspecified

== ENCOUNTER → 2017-12-24 08:24 | Outpatient (CLI) | payer MEDICARE ==
[2017-11-05 06:45] VITALS: BMI 23.7
[~2017-12-24 08:24] MED LIST changes: +ALBUTEROL1.25 MG/3 INH; +BAYER CHEWABLE81 MG PO; +COMBIVENT RESPIM4 GM INH; +COREG6.25 MG PO; +HYDROCODON-ACE1 EAC9 PO; +LOMOTIL TABLET1 TAB PO; +PHENERGAN25 M1 PO; +PROTONIX40 MG PO
[2017-12-24 11:29] LABS: ERYTHROCYTE SEDIMENTATION RATE 7 mm/hr (0-15)
[2017-12-25 12:15] LABS: ANA REFLEX - DIRECT Negative (Negative)
== END | disposition home or self-care (01) ==
LOC: D.RT 08:24
PROVIDERS: Internal Medicine Pulmonary Disease
DX: R06.00 Dyspnea, unspecified (principal)

== ENCOUNTER 2018-02-10 11:29 | Emergency (ER) | payer MEDICARE ==
[~2018-02-10] VITALS: Ht 180.3 cm; Wt 75.0 kg
[~2018-02-10 11:29] MED LIST changes: -ALBUTEROL1.25 MG/3 INH; -LOMOTIL TABLET1 TAB PO; -PHENERGAN25 M1 PO; -PROTONIX40 MG PO
[2018-02-10 12:05] VITALS: Ht 180.3 cm; Wt 75.0 kg
[2018-02-10] MEDS ORDERED: ALBUTEROL1.25 MG/3 INH (12:08)
[2018-02-10 12:35] LABS: BASOPHILS 0.4 % (0-2); EOSINOPHILS 1.2 % (0-7); HEMATOCRIT 46.5 % (42.0-54.0); HEMOGLOBIN 16.4 g/dL (13.5-17.5); IMMATURE GRANULOCYTES 0.7 % (0-5); LYMPHOCYTES 27.7 % (15-50); MCH 32.3 pg (26.0-34.0); MCHC 35.3 g/dL (31.0-37.0); MCV 91.5 fL (80.0-100.0); MEAN PLATELET VOLUME 9.4 fL (7.4-10.4); RBC 5.08 10x6/uL (4.20-6.10); RDW 12.7 % (11.5-14.5)
[2018-02-10 12:38] LABS: PLATELET COUNT 316 10x3/uL (130-400)
[2018-02-10 12:42] LABS: APPEARANCE CLEAR (CLEAR); BILIRUBIN NEGATIVE (NEGATIVE); COLOR STRAW (YELLOW); GLUCOSE NEGATIVE (NEGATIVE); KETONE NEGATIVE (NEGATIVE); NITRITE NEGATIVE (NEGATIVE); PROTEIN NEGATIVE (NEGATIVE); SPECIFIC GRAVITY 1.005 (1.005-1.020); UROBILINOGEN NORMAL (NORMAL)
[2018-02-10 12:54] LABS: ALBUMIN 3.6 g/dL (3.4-5.0); ALKALINE PHOSPHATASE 102 U/L (46-116); ALT (SGPT) 17 U/L (10-68); BILIRUBIN - TOTAL 0.47 mg/dL (0.2-1.3); CALC OSMOLALITY 270 mosm/kg (275-300); CARBON DIOXIDE 27.9 mmol/L (21.0-32.0); CHLORIDE - SERUM 100 mmol/L (98-107); GLUCOSE 103 mg/dL (74-106); POTASSIUM - SERUM 3.6 mmol/L (3.5-5.1); PROTEIN - SERUM 7.2 g/dL (6.4-8.2); SODIUM 137 mmol/L (136-145); UREA NITROGEN 3 mg/dL (7-18); eGFR NON AFRICAN AMERICAN 87 mL/min (90-120)
[2018-02-10 12:57] LABS: AMYLASE - SERUM 35 U/L (25-115); LIPASE 68 U/L (73-393); TROPONIN-I < 0.017 ng/mL (0.000-0.060)
[2018-02-10] MEDS ORDERED: LOMOTIL TABLET1 TAB PO (15:28)
[2018-02-10] MEDS ORDERED: PHENERGAN25 M1 PO (15:28)
[2018-02-10] MEDS ORDERED: PROTONIX40 MG PO (15:28)
[2018-02-10 17:05] VITALS: BP 127/83
== END 2018-02-10 17:08 | disposition home or self-care (01) ==
LOC: D.ER 11:29
PROVIDERS: Emergency Medicine
DX: A08.4 Viral intestinal infection, unspecified (principal); K52.9 Noninfective gastroenteritis and colitis, unspecified; K21.9 Gastro-esophageal reflux disease without esophagitis; J02.9 Acute pharyngitis, unspecified; R11.10 Vomiting, unspecified; I10 Essential (primary) hypertension; F17.200 Nicotine dependence, unspecified, uncomplicated

== ENCOUNTER 2018-04-22 11:32 | Emergency (ER) | payer MEDICARE ==
[~2018-04-22] VITALS: Ht 180.3 cm; Wt 81.4 kg
[~2018-04-22 11:32] MED LIST changes: +ALBUTEROL1.25 MG/3 INH; +LOMOTIL TABLET1 TAB PO; +PHENERGAN25 M1 PO; +PROTONIX40 MG PO
[2018-04-22 11:40] VITALS: Ht 180.3 cm; Wt 81.4 kg
[2018-04-22] MEDS ORDERED: CHRONULAC30 ML PO (12:28)
[2018-04-22 12:38] VITALS: BP 140/90
== END 2018-04-22 12:39 | disposition home or self-care (01) ==
LOC: D.ER 11:32
DX: K59.00 Constipation, unspecified (principal); I10 Essential (primary) hypertension; F17.200 Nicotine dependence, unspecified, uncomplicated

== ENCOUNTER 2018-05-19 17:34 | Emergency (ER) | payer MEDICARE ==
[2018-05-19 18:59] LABS: BASOPHILS 0.4 % (0-2); EOSINOPHILS 1.4 % (0-7); HEMATOCRIT 45.1 % (42.0-54.0); HEMOGLOBIN 15.4 g/dL (13.5-17.5); IMMATURE GRANULOCYTES 0.3 % (0-5); LYMPHOCYTES 33.7 % (15-50); MCH 31.9 pg (26.0-34.0); MCHC 34.1 g/dL (31.0-37.0); MCV 93.4 fL (80.0-100.0); MEAN PLATELET VOLUME 10.1 fL (7.4-10.4); MONOCYTES 5.8 % (2-11); NEUTROPHILS 58.4 % (40-80); PLATELET COUNT 279 10x3/uL (130-400); RBC 4.83 10x6/uL (4.20-6.10); RDW 12.9 % (11.5-14.5); WBC 12.1 10x3/uL (4.8-10.8)
[2018-05-19 19:08] LABS: APTT 28.9 SECONDS (22.8-39.4); INR 1.04 (0.85-1.17); PROTIME 13.1 SECONDS (11.6-15.0)
[2018-05-19 19:29] LABS: ALBUMIN 3.5 g/dL (3.4-5.0); ALKALINE PHOSPHATASE 89 U/L (46-116); ALT (SGPT) 14 U/L (10-68); BILIRUBIN - TOTAL 0.39 mg/dL (0.2-1.3); CALC OSMOLALITY 278 mosm/kg (275-300); CALCIUM 8.9 mg/dL (8.5-10.1); CARBON DIOXIDE 28.8 mmol/L (21.0-32.0); CHLORIDE - SERUM 104 mmol/L (98-107); CKMB 0.2 U/L (0.0-3.6); CREATINE KINASE 93 UL (21-232); CREATININE - SERUM 0.8 mg/dL (0.6-1.3); GLUCOSE 112 mg/dL (74-106); MAGNESIUM - SERUM 1.9 mg/dL (1.8-2.4); POTASSIUM - SERUM 3.2 mmol/L (3.5-5.1); PROTEIN - SERUM 7.2 g/dL (6.4-8.2); SODIUM 141 mmol/L (136-145); UREA NITROGEN 5 mg/dL (7-18); eGFR NON AFRICAN AMERICAN > 90 mL/min (90-120)
[2018-05-19 19:33] LABS: TROPONIN-I < 0.017 ng/mL (0.000-0.060)
[2018-05-19 20:00] LABS: APPEARANCE CLEAR (CLEAR); COLOR YELLOW (YELLOW)
[2018-05-19 20:01] LABS: BILIRUBIN NEGATIVE (NEGATIVE); GLUCOSE NEGATIVE (NEGATIVE); KETONE NEGATIVE (NEGATIVE); NITRITE NEGATIVE (NEGATIVE); PROTEIN NEGATIVE (NEGATIVE); UROBILINOGEN NORMAL (NORMAL)
[2018-05-19 20:02] LABS: BACTERIA FEW /hpf (NONE SEEN); RED CELLS - URINE 0-5 /hpf (0-5); WHITE CELLS - URINE OCC /hpf (0-5)
[2018-05-19 20:45] LABS: UDS - AMPHET NEGATIVE QUAL (NEGATIVE); UDS - BARB NEGATIVE QUAL (NEGATIVE); UDS - BENZO POSITIVE QUAL (NEGATIVE); UDS - COCAINE NEGATIVE QUAL (NEGATIVE); UDS - OPIATE POSITIVE QUAL (NEGATIVE); UDS - PCP NEGATIVE QUAL (NEGATIVE); UDS - THC NEGATIVE QUAL (NEGATIVE)
== END 2018-05-19 20:49 | disposition home or self-care (01) ==
LOC: D.ER 17:34
PROVIDERS: Family Medicine
DX: M79.18 Myalgia, other site (principal); I10 Essential (primary) hypertension

== ENCOUNTER 2018-07-13 17:54 | Emergency (ER) | payer MEDICARE ==
[~2018-07-13] VITALS: Ht 180.3 cm; Wt 76.8 kg
[~2018-07-13 17:54] MED LIST changes: +CHRONULAC30 ML PO
[2018-07-13 17:56] VITALS: Ht 180.3 cm; Wt 76.8 kg
[2018-07-13 18:44] LABS: BASOPHILS 0.3 % (0-2); HEMATOCRIT 43.8 % (42.0-54.0); HEMOGLOBIN 15.5 g/dL (13.5-17.5); IMMATURE GRANULOCYTES 0.5 % (0-5); LYMPHOCYTES 36.1 % (15-50); MCH 31.7 pg (26.0-34.0); MCHC 35.4 g/dL (31.0-37.0); MCV 89.6 fL (80.0-100.0); MEAN PLATELET VOLUME 9.6 fL (7.4-10.4); MONOCYTES 6.5 % (2-11); NEUTROPHILS 55.6 % (40-80); PLATELET COUNT 329 10x3/uL (130-400); RBC 4.89 10x6/uL (4.20-6.10); RDW 12.5 % (11.5-14.5); WBC 14.7 10x3/uL (4.8-10.8)
[2018-07-13 18:53] LABS: APTT 26.1 SECONDS (22.8-39.4); INR 1.01 (0.85-1.17); PROTIME 12.8 SECONDS (11.6-15.0)
[2018-07-13 18:55] LABS: D-DIMER-QUANTITATIVE < 0.27 ug/mLFEU (0.20-0.54)
[2018-07-13 19:10] LABS: ALBUMIN 3.5 g/dL (3.4-5.0); ALKALINE PHOSPHATASE 87 U/L (46-116); ALT (SGPT) 17 U/L (10-68); BILIRUBIN - TOTAL 0.48 mg/dL (0.2-1.3); CALC OSMOLALITY 272 mosm/kg (275-300); CARBON DIOXIDE 28.7 mmol/L (21.0-32.0); CHLORIDE - SERUM 99 mmol/L (98-107); CREATININE - SERUM 0.9 mg/dL (0.6-1.3); GLUCOSE 104 mg/dL (74-106); PROTEIN - SERUM 6.7 g/dL (6.4-8.2); SODIUM 138 mmol/L (136-145); UREA NITROGEN 5 mg/dL (7-18); eGFR NON AFRICAN AMERICAN > 90 mL/min (90-120)
[2018-07-13] MEDS ORDERED: CATAPRES0.1 MG PO (19:25)
[2018-07-13 19:27] LABS: APPEARANCE CLEAR (CLEAR); BILIRUBIN NEGATIVE (NEGATIVE); COLOR YELLOW (YELLOW); GLUCOSE NEGATIVE (NEGATIVE); KETONE NEGATIVE (NEGATIVE); NITRITE NEGATIVE (NEGATIVE); PROTEIN NEGATIVE (NEGATIVE); SPECIFIC GRAVITY 1.005 (1.005-1.020); UROBILINOGEN NORMAL (NORMAL)
[2018-07-13 19:29] LABS: POTASSIUM - SERUM 2.8 mmol/L (3.5-5.1); TROPONIN-I < 0.017 ng/mL (0.000-0.060)
[2018-07-13 19:59] LABS: UDS - AMPHET NEGATIVE QUAL (NEGATIVE); UDS - BARB NEGATIVE QUAL (NEGATIVE); UDS - BENZO POSITIVE QUAL (NEGATIVE); UDS - COCAINE NEGATIVE QUAL (NEGATIVE); UDS - OPIATE NEGATIVE QUAL (NEGATIVE); UDS - PCP NEGATIVE QUAL (NEGATIVE); UDS - THC NEGATIVE QUAL (NEGATIVE)
[2018-07-13 20:20] VITALS: BP 107/61
== END 2018-07-13 20:20 | disposition home or self-care (01) ==
LOC: D.ER 17:54
PROVIDERS: Family Medicine
DX: B34.9 Viral infection, unspecified (principal); I10 Essential (primary) hypertension; E87.6 Hypokalemia; F17.200 Nicotine dependence, unspecified, uncomplicated

== ENCOUNTER 2018-09-10 08:30 | Emergency (ER) | payer MEDICARE ==
[~2018-09-10] VITALS: Ht 180.3 cm; Wt 71.8 kg
[~2018-09-10 08:30] MED LIST changes: +CATAPRES0.1 MG PO
[2018-09-10 08:54] VITALS: Ht 180.3 cm; Wt 71.8 kg
[2018-09-10 09:42] LABS: BASOPHILS 0.4 % (0-2); EOSINOPHILS 1.1 % (0-7); HEMATOCRIT 45.7 % (42.0-54.0); HEMOGLOBIN 15.7 g/dL (13.5-17.5); IMMATURE GRANULOCYTES 0.3 % (0-5); LYMPHOCYTES 27.6 % (15-50); MCH 31.7 pg (26.0-34.0); MCHC 34.4 g/dL (31.0-37.0); MCV 92.1 fL (80.0-100.0); MONOCYTES 8.9 % (2-11); NEUTROPHILS 61.7 % (40-80); PLATELET COUNT 304 10x3/uL (130-400); RBC 4.96 10x6/uL (4.20-6.10); WBC 9.1 10x3/uL (4.8-10.8)
[2018-09-10 09:57] LABS: ALBUMIN 3.5 g/dL (3.4-5.0); ALKALINE PHOSPHATASE 89 U/L (46-116); ALT (SGPT) 30 U/L (10-68); BILIRUBIN - TOTAL 0.28 mg/dL (0.2-1.3); CALC OSMOLALITY 278 mosm/kg (275-300); CALCIUM 8.9 mg/dL (8.5-10.1); CARBON DIOXIDE 29.3 mmol/L (21.0-32.0); CHLORIDE - SERUM 103 mmol/L (98-107); CREATININE - SERUM 0.9 mg/dL (0.6-1.3); GLUCOSE 108 mg/dL (74-106); POTASSIUM - SERUM 3.1 mmol/L (3.5-5.1); PROTEIN - SERUM 6.9 g/dL (6.4-8.2); SODIUM 141 mmol/L (136-145); UREA NITROGEN 4 mg/dL (7-18); eGFR NON AFRICAN AMERICAN > 90 mL/min (90-120)
[2018-09-10 10:13] LABS: APPEARANCE CLEAR (CLEAR); BILIRUBIN NEGATIVE (NEGATIVE); COLOR YELLOW (YELLOW); GLUCOSE NEGATIVE (NEGATIVE); KETONE NEGATIVE (NEGATIVE); NITRITE NEGATIVE (NEGATIVE); PROTEIN NEGATIVE (NEGATIVE); UROBILINOGEN NORMAL (NORMAL)
[2018-09-10] MEDS ORDERED: ZOFRAN8 MG PO (11:40)
[2018-09-10] MEDS ORDERED: TORADOL10 MG PO (11:40)
[2018-09-10 12:45] VITALS: BP 126/84
== END 2018-09-10 12:30 | disposition home or self-care (01) ==
LOC: D.ER 08:30
PROVIDERS: Emergency Medicine
DX: R50.9 Fever, unspecified (principal); R05 Cough; M79.18 Myalgia, other site; E87.6 Hypokalemia

== ENCOUNTER 2019-03-31 20:35 | Emergency (ER) | payer MEDICARE ==
[~2019-03-31] VITALS: Ht 180.3 cm; Wt 77.7 kg
[~2019-03-31 20:35] MED LIST changes: +TORADOL10 MG PO; +ZOFRAN8 MG PO
[2019-03-31 20:57] VITALS: Ht 180.3 cm; Wt 77.7 kg
[2019-03-31] MEDS ORDERED: SYMBICORT 80-10.2 GM INH (21:07)
[2019-03-31] MEDS ORDERED: LYRICA75 MG PO (21:08)
[2019-03-31] MEDS ORDERED: OXYCONTIN10 MG PO (21:08)
[2019-03-31] MEDS ORDERED: MORPHINE SULFAT15 M4 PO (21:08)
[2019-03-31] MEDS ORDERED: NEURONTIN 300300 MG PO (21:09)
[2019-03-31] MEDS ORDERED: VALIUM5 MG PO (21:09)
[2019-03-31 22:57] LABS: APPEARANCE CLEAR (CLEAR); BILIRUBIN NEGATIVE (NEGATIVE); COLOR YELLOW (YELLOW); GLUCOSE NEGATIVE (NEGATIVE); KETONE NEGATIVE (NEGATIVE); NITRITE NEGATIVE (NEGATIVE); PROTEIN NEGATIVE (NEGATIVE); UROBILINOGEN NORMAL (NORMAL)
[2019-03-31 23:06] LABS: BASOPHILS 0.3 % (0-2); EOSINOPHILS 0.9 % (0-7); HEMATOCRIT 46.1 % (42.0-54.0); HEMOGLOBIN 15.7 g/dL (13.5-17.5); IMMATURE GRANULOCYTES 0.4 % (0-5); LYMPHOCYTES 28.8 % (15-50); MCH 31.9 pg (26.0-34.0); MCHC 34.1 g/dL (31.0-37.0); MCV 93.7 fL (80.0-100.0); MONOCYTES 6.7 % (2-11); NEUTROPHILS 62.9 % (40-80); RBC 4.92 10x6/uL (4.20-6.10); RDW 13.2 % (11.5-14.5); WBC 11.5 10x3/uL (4.8-10.8)
[2019-03-31 23:09] LABS: PLATELET COUNT 224 10x3/uL (130-400)
[2019-03-31 23:14] LABS: CALC OSMOLALITY 263 mosm/kg (275-300); CALCIUM 8.9 mg/dL (8.5-10.1); CARBON DIOXIDE 28.2 mmol/L (21.0-32.0); CHLORIDE - SERUM 102 mmol/L (98-107); CREATININE - SERUM 0.9 mg/dL (0.6-1.3); GLUCOSE 100 mg/dL (74-106); POTASSIUM - SERUM 3.5 mmol/L (3.5-5.1); SODIUM 133 mmol/L (136-145); UREA NITROGEN 8 mg/dL (7-18); eGFR NON AFRICAN AMERICAN > 90 mL/min (90-120)
[2019-03-31 23:20] LABS: ALBUMIN 3.3 g/dL (3.4-5.0); ALKALINE PHOSPHATASE 106 U/L (46-116); ALT (SGPT) 25 U/L (10-68); BILIRUBIN - TOTAL 0.36 mg/dL (0.2-1.3); PROTEIN - SERUM 7.2 g/dL (6.4-8.2)
[2019-03-31 23:27] LABS: APTT 27.4 SECONDS (22.8-39.4); INR 1.04 (0.85-1.17); PROTIME 13.1 SECONDS (11.6-15.0)
[2019-04-01] MEDS ORDERED: ACETAMINOPHEN500 M1 PO (00:56)
[2019-04-01] MEDS ORDERED: CYCLOBENZAPRINE10 MG PO (00:56)
[2019-04-01] MEDS ORDERED: IBUPROFEN800 MG PO (00:56)
[2019-04-01 02:59] VITALS: BP 146/97
== END 2019-04-01 02:58 | disposition home or self-care (01) ==
LOC: D.ER 20:35
PROVIDERS: Family Medicine
DX: S39.012A Strain of muscle, fascia and tendon of lower back, initial encounter (principal); V89.2XXA Person injured in unspecified motor-vehicle accident, traffic, initial encounter; M54.5 Low back pain; M54.2 Cervicalgia

== ENCOUNTER 2019-06-01 06:50 | Day surgery (SDC) | payer MEDICARE ==
[~2019-06-01] VITALS: Ht 180.3 cm; Wt 78.9 kg
[~2019-06-01 06:50] MED LIST changes: +ACETAMINOPHEN500 M1 PO; +CYCLOBENZAPRINE10 MG PO; +IBUPROFEN800 MG PO; +LYRICA75 MG PO; +MORPHINE SULFAT15 M4 PO; +NEURONTIN 300300 MG PO; +OXYCONTIN10 MG PO; +SINGULAIR10 MG PO; +SYMBICORT 80-10.2 GM INH
[2019-06-01 07:15] LABS: HEMATOCRIT 48.1 % (42.0-54.0); HEMOGLOBIN 15.9 g/dL (13.5-17.5); MCH 31.4 pg (26.0-34.0); MCHC 33.1 g/dL (31.0-37.0); MCV 95.1 fL (80.0-100.0); MEAN PLATELET VOLUME 9.8 fL (7.4-10.4); RBC 5.06 10x6/uL (4.20-6.10); RDW 13.1 % (11.5-14.5); WBC 7.2 10x3/uL (4.8-10.8)
[2019-06-01 08:35] VITALS: BP 96/73; Ht 180.3 cm; Wt 78.9 kg
[2019-06-01] MEDS ORDERED: OXYCODONE HCL5 M1 PO (10:35)
[2019-06-01] MEDS ORDERED: MIRALAX17 GM PO (10:35)
[2019-06-01] MEDS ORDERED: TUCKS MEDICATE1 EACH TOPICAL (10:36)
--- NOTE | 2019-06-01 13:34 | NUR ---
1150 PT C/O IV HURING IN HIS LEFT AC. NO SWELLING NOTED AT SITE. IV DC'D. CATHETER TIP INTACT. BANDAID APPLIED. 1250 FAMILY HERE AT BEDSIDE. PT READY FOR DISCHARGE HOME. PT VOICES UNDERSTANDING OF DISCHARGE INSTRUCTIONS.
== END 2019-06-01 12:58 | disposition home or self-care (01) ==
LOC: D.OPS 06:50 → D.PAN 09:30 → D.OPS 09:30
PROVIDERS: Anesthesiology; ATTEND Surgery
DX: K64.8 Other hemorrhoids (principal); K62.5 Hemorrhage of anus and rectum; F17.200 Nicotine dependence, unspecified, uncomplicated; J44.9 Chronic obstructive pulmonary disease, unspecified; G89.4 Chronic pain syndrome; F11.20 Opioid dependence, uncomplicated

== ENCOUNTER 2019-07-02 20:22 | Emergency (ER) | payer MEDICARE ==
[~2019-07-02] VITALS: Ht 180.3 cm; Wt 75.0 kg
[~2019-07-02 20:22] MED LIST changes: +MIRALAX17 GM PO; +OXYCODONE HCL5 M1 PO; +TUCKS MEDICATE1 EACH TOPICAL
[2019-07-02 20:37] VITALS: Ht 180.3 cm; Wt 75.0 kg
[2019-07-02 20:54] LABS: BASOPHILS 0.3 % (0-2); EOSINOPHILS 1.9 % (0-7); HEMATOCRIT 48.3 % (42.0-54.0); HEMOGLOBIN 16.5 g/dL (13.5-17.5); IMMATURE GRANULOCYTES 0.3 % (0-5); LYMPHOCYTES 19.1 % (15-50); MCHC 34.2 g/dL (31.0-37.0); MCV 93.6 fL (80.0-100.0); MEAN PLATELET VOLUME 9.8 fL (7.4-10.4); MONOCYTES 7.7 % (2-11); NEUTROPHILS 70.7 % (40-80); RBC 5.16 10x6/uL (4.20-6.10); RDW 12.6 % (11.5-14.5); WBC 14.8 10x3/uL (4.8-10.8)
[2019-07-02 20:55] LABS: PLATELET COUNT 269 10x3/uL (130-400)
[2019-07-02 21:03] LABS: APTT 27.4 SECONDS (22.8-39.4); CALC OSMOLALITY 286 mosm/kg (275-300); CALCIUM 8.7 mg/dL (8.5-10.1); CARBON DIOXIDE 29.9 mmol/L (21.0-32.0); CHLORIDE - SERUM 107 mmol/L (98-107); CREATININE - SERUM 1.1 mg/dL (0.6-1.3); GLUCOSE 111 mg/dL (74-106); INR 0.97 (0.85-1.17); POTASSIUM - SERUM 4.2 mmol/L (3.5-5.1); PROTIME 12.9 SECONDS (11.6-15.0); SODIUM 144 mmol/L (136-145); UREA NITROGEN 10 mg/dL (7-18); eGFR NON AFRICAN AMERICAN 77 mL/min (90-120)
[2019-07-02 21:23] LABS: ALBUMIN 3.5 g/dL (3.4-5.0); ALKALINE PHOSPHATASE 98 U/L (46-116); ALT (SGPT) 24 U/L (10-68); BILIRUBIN - TOTAL 0.41 mg/dL (0.2-1.3); CKMB 0.2 U/L (0.0-3.6); CREATINE KINASE 46 UL (21-232); PROTEIN - SERUM 7.2 g/dL (6.4-8.2); TROPONIN-I < 0.017 ng/mL (0.000-0.060)
[2019-07-02 21:33] LABS: APPEARANCE CLEAR (CLEAR); BILIRUBIN NEGATIVE (NEGATIVE); COLOR YELLOW (YELLOW); GLUCOSE NEGATIVE (NEGATIVE); KETONE NEGATIVE (NEGATIVE); NITRITE NEGATIVE (NEGATIVE); PROTEIN NEGATIVE (NEGATIVE); SPECIFIC GRAVITY 1.015 (1.005-1.020); UROBILINOGEN NORMAL (NORMAL)
[2019-07-02 21:38] LABS: BACTERIA FEW /hpf (NEGATIVE); EPITHELIAL CELLS 0-5 /hpf (0-5); RED CELLS - URINE 0-5 /hpf (0-5); WHITE CELLS - URINE 0-5 /hpf (NEGATIVE)
[2019-07-02 21:39] LABS: AMYLASE - SERUM 30 U/L (25-115)
[2019-07-02 21:43] LABS: LIPASE 39 U/L (73-393)
[2019-07-02 23:20] LABS: UDS - AMPHET NEGATIVE QUAL (NEGATIVE); UDS - BARB NEGATIVE QUAL (NEGATIVE); UDS - BENZO NEGATIVE QUAL (NEGATIVE); UDS - COCAINE NEGATIVE QUAL (NEGATIVE); UDS - OPIATE POSITIVE QUAL (NEGATIVE); UDS - PCP NEGATIVE QUAL (NEGATIVE); UDS - THC NEGATIVE QUAL (NEGATIVE)
[2019-07-02 23:45] VITALS: BP 125/90
== END 2019-07-02 23:45 | disposition home or self-care (01) ==
LOC: D.ER 20:22
PROVIDERS: Family Medicine
DX: R07.89 Other chest pain (principal); M54.9 Dorsalgia, unspecified; D72.829 Elevated white blood cell count, unspecified; G89.29 Other chronic pain; I10 Essential (primary) hypertension; J45.909 Unspecified asthma, uncomplicated; G62.9 Polyneuropathy, unspecified; Z72.0 Tobacco use

== ENCOUNTER 2019-09-03 06:39 | Outpatient (CLI) | payer MEDICARE ==
[~2019-09-03] VITALS: Ht 180.3 cm; Wt 80.9 kg
--- NOTE | ~2019-09-03 | HEMODYNAMI ---
PATIENT:JASEN RUEDA JR MEDICAL RECORD: [id number] : 73 LOCATION:[facility] ADMISSION DATE: 09/03/19 Generatedon:09/03/20199:50 Patient name: JASEN RUEDA Patient #: [id number] SSN: [id number] : 1975 Date of study: 09/03/2019 Page: Of Hemodynamic Procedure Report Patient Data Patient Demographics Procedure consent was obtained First Name: JASEN Gender: Male Last Name: MOHIT Suffix: [facility] Initial: Jeet : 1975 Patient #: [id number] Age: 43 year(s) Race: SSN: [id number] Additional ID: [id number] Contact details [address]: [address] [place] [address] rd State: [place] City: [place] Zip code: [address] Past Medical History Allergies Allergen Reaction Date Comments Reported Other 09/03/2019 NORVASC/LISINOPRIL/METOPROLOL allergy Admission Admission Data Admission Date: 09/03/2019 Admission Time: 6:39 Arrival Date: 09/03/2019 Arrival Time: 0:00 Insurance Payor: Medicare [facility] #: [id number] Height (in.): 70.87 BSA: 2.01 (m2) Height (cm.): 180 BMI: 25 (kg/m2) Weight (lbs.): 178.58 Weight (kg.): 81 Lab Results Lab Result Date: 09/03/2019 Lab Result Time: 0:00 Biochemistry Name Units Result Min Max BUN mg/dl 13 --(--*-)-- 7 18 Creatinine mg/dl 0.9 --(-*--)-- 0.6 1.3 eGFR ml/min 90 --(*---)-- 90 120 NONAFRICAN CBC Name Units Result Min Max Hematocrit % 43 --(*---)-- 42 54 Hemoglobin g/dl 14 --(*---)-- 13.5 17.5 Procedure Procedure Types Cath Procedure Diagnostic Procedure [facility] w/Coronaries Procedure Description Procedure Date Procedure Date: 09/03/2019 Procedure Start Time: 9:30 Procedure End Time: 9:43 Procedure Staff Name Function Jamie Ureña MD Performing Physician Marisabel Greene RT Monitor Sarina Chris RT Scrub Elvin Card RN Nurse Stacey Fong RN Social Service Assistant Blayne Barker CRNA Additional personnel Indication Chest pain Procedure Data Cath Procedure Fluoroscopy Diagnostic fluoroscopy Total fluoroscopy Time: 1.6 time: 1.6 min min Diagnostic fluoroscopy Total fluoroscopy dose: 287 dose: 287 mGy mGy Contrast Material Contrast Material Type Amount (ml) Isovue 300 65 Entry Location Entry Primary Successful Side Size Upsize Upsize Entry Closure Succes sful Closure Location (Fr) 1 (Fr) 2 (Fr) Remarks Device Remarks Femoral Right 5 Fr Exoseal artery Estimated blood loss: 5 ml Diagnostic catheters Device Type Used For End Catheter Placement MULTIPACK JL 4.0 5Fr Left Coronary catheter Angiography MULTIPACK 3DRC 5Fr Right Coronary catheter Angiography MULTIPACK Pigtail 5 Fr LV Angiography catheter Procedure Complications No complications Procedure Medications Medication Administration Route Dosage 0.9% NaCl I.V. 100 ml/hr Oxygen etCO2 Nasal cannula 2 l/min Heparin Flush Bag added to field 2 bags (1000units/500ml NS) Lidocaine 2% added to field 20 Refer to Anesthesia Notes for Sedation Medications Hemodynamics Rest BSA: 2.01 (m2) HGB: 14 (g/dl) O2 Consumption: Estimated: 237.62 (ml/min) O2 Cons umption indexed: Estimated:118.22 (ml/min/m) Heart Rate: 62 (bpm) Pressure Samples Time Site Value (mmHg) Purpose Heart Use Rate(bpm) 9:37 LV 108/-8,15 Snapshot 83 9:38 AO 101/52(74) Pullback 85 9:38 LV 116/-6,22 Pullback 85 Gradients Valve Time Site 1 Site 2 Mean SEP/DFP Peak To Heart Use (mmHg) (sec/min) Peak Rate (mmHg) (bpm) Aortic 9:38 LV AO 11 23 15 85 116/-6,22 101/52(74) Calculations Valve P-P Mean Valve Index Valve Source Name Gradient Area Flow (cm2) Aortic 15 11 15 11 Snapshots Pre Cath Intra NCS Post Cath Vital Signs Time Heart Resp SPO2 etCO2 NIBP (mmHg) Rhythm Pain Sedation Rate (ipm) (%) (mmHg) Status Level (bpm) 9:04:35 61 20 100 37.2 140/83(94) NSR 0 (11) 10(A) , No pain 9:08:49 65 13 100 35.7 150/86(130) NSR 0 (11) 10(A) , No pain 9:13:05 65 13 100 29 132/86(106) NSR 0 (11) 10(A) , No pain 9:17:19 63 10 100 20.1 127/86(104) NSR 0 (11) 10(A) , No pain 9:22:29 66 15 100 33.5 127/85(100) NSR 0 (11) 10(A) , No pain 9:26:45 81 17 100 13.4 133/73(97) NSR 0 (11) 9(A) , No pain 9:30:59 76 11 96 13.4 112/71(83) NSR 0 (11) 9(A) , No pain 9:35:11 82 15 95 0 116/70(93) NSR 0 (11) 9(A) , No pain 9:39:22 84 14 95 0 110/68(89) NSR 0 (11) 9(A) , No pain 9:43:34 81 14 96 8.9 111/64(83) NSR 0 (11) 10(A) , No pain 9:45:15 78 14 96 10.4 108/65(88) NSR 0 (11) 10(A) , No pain Medications Time Medication Route Dose Verified Delivered Reason Notes Effe ctiveness by by 9:02:51 0.9% NaCl I.V. 100 Elvin Elvin Per ml/hr Kyaw Card physician RN RN 9:03:00 Oxygen etCO2 2 Elvin Elvin for low 02 Nasal l/min Kyaw Card sats cannula RN RN 9:03:12 Heparin Flush added 2 Elvin Elvin used for Bag to bags Kyaw Card procedure (1000units/500ml field RN RN NS) 9:03:22 Lidocaine 2% added 20ml Elvin Elvin for local to vial Kyaw Card anesthetic field RN RN 9:24:50 Refer to Elvin Elvin for Anesthesia Notes Kyaw Card sedation for Sedation RN RN Medications Procedure Log Time Note 8:35:02 Diagnostic Cath Status : Elective 8:35:35 Indication : Chest pain 8:35:51 Informed consent obtained and on chart 8:45:12 Arrival Date: 09/03/2019 12:00:00 AM 8:45:42 Insurance Payor : Medicare 8:46:24 Patient Height : 70.87 inches 8:46:30 Patient Weight : 178.58 lbs 8:47:23 Lab Result : eGFR NONAFRICAN 90 ml/min 8:47:23 Lab Result : Creatinine 0.9 mg/dl 8:47:23 Lab Result : BUN 13 mg/dl 8:47:23 Lab Result : Hemoglobin 14 g/dl 8:47:23 Lab Result : Hematocrit 43 % 8:47:59 Procedure Status Elective Heart Cath (OP). 8:48:03 Stacey Fong RN sent for patient. Start room use. 8:48:10 ACC Patient presents with Stable Angina CCS Anginal Class 3--Marked limitation of physical activity, angina occurs with ordinary activity.. 8:48:15 Time tracking: Regular hours (M-F 7:00 - 5:00) 8:48:22 Plan of Care:Hemodynamics will remain stable., Cardiac rhythm will remain stable., Comfort level will be maintained., Respiratory function will remain adequate., Patient/ family verbilizes understanding of procedure., Procedure tolerated without complication., Recovers from procedure without complications.. 8:56:53 Patient received from Pre/Post Procedure Room to CCL 1 Alert and oriented. Tansferred to table in Supine position. 8:56:56 Warm blankets applied, and sonya hugger turned on for patient comfort. 8:56:57 Correct patient and procedure confirmed by team. 8:56:58 ECG and BP/O2 sat monitors applied to patient. 9:02:51 0.9% NaCl 100 ml/hr I.V. was administered by Elvin Card RN; Per physician; Verbal order read back and verified. 9:03:00 Oxygen 2 l/min etCO2 Nasal cannula was administered by Elvin Card RN; for low 02 sats; Verbal order read back and verified. 9:03:12 Heparin Flush Bag (1000units/500ml NS) 2 bags added to field was administered by Elvin Card RN; used for procedure; Verbal order read back and verified. 9:03:22 Lidocaine 2% 20ml vial added to field was administered by Elvin Card RN; for local anesthetic; Verbal order read back and verified. 9:03:28 Vital chart was started 9:07:21 Baseline sample Acquired. :: Rhythm: sinus rhythm ::29 Full Disclosure recording started 9:07:30 9:07:38 H&P Date Dictated: 09/03/2019 H&P Addendum completed by physician on day of procedure. (MUST COMPLETE FOR ALL OUTPATIENTS), New H&P dictated by physician.. 9:07:40 Pre-procedure instructions explained to patient. 9:07:41 Pre-op teaching completed and patient verbalized understanding. 9:07:47 Family in patients room. 9:07:59 Patient NPO since Midnight. 9:09:05 Patient allergic to Other allergyNORVASC/LISINOPRIL/METOPROLOL 9:09:12 Is the patient allergic to Iodine/contrast media? No. 9:09:16 Was the patient premedicated? Yes 9:09:21 Is patient on blood thinner?No 9:09:39 Patient diabetic? No. 9:11:17 ----Pre-sedation anethsthesia assessment.---- 9:11:19 Blayne Barker CRNA present and monitoring patient for TIVA. 9:11:22 Previous problem with sedation/anesthesia? No ? 9:11:26 Snore? Yes 9:11:29 Sleep apnea? No 9:11:33 Deviated septum? No 9:11:36 Opens mouth fully? Yes 9:11:38 Sticks out tongue? Yes 9:11:50 Airway obstruction? Yes COPD/ASTHMA 9:12:04 Dentures? No ? 9:12:10 Pre procedure: right dorsailis pedis pulse 1+ Palpable, but thready & weak; easily obliterated 9:13:25 IV patent on arrival in left hand with 0.9% NaCl at [facility]. 9:13:33 Lab results completed and on chart. 9:13:40 Stress Test: no; N/A ? 9:14:36 SCAI NOT WORKING. 9:14:44 Right groin area was prepped with chlora-prep and draped in sterile fashion 9:14:47 Alarms reviewed by R. N. 9:14:48 Sharps counted by scrub and verified by R.N. 9:17:20 Use device set Femoral Dx 9:17:22 ACIST Syringe (99020) opened to sterile field. 9:17:23 Bag Decanter (2002S) opened to sterile field. 9:17:23 Medline Cath Pack ([id number]) opened to sterile field. 9:17:27 ACIST Hand Control (25574) opened to sterile field. 9:17:28 ACIST Manifold (06748) opened to sterile field. 9:17:29 DIAGNOSTIC Multipack 5Fr catheter set ([id number]) opened to sterile field. 9:17:31 Tegaderm 4 x 4 (1626W) opened to sterile field. 9:17:33 SHEATH 5FR [place] ([id number]) opened to sterile field. 9:17:34 EMERALD Guide Wire (103-563) opened to sterile field. 9:20:39 Zero performed for pressure channel P1 9:21:20 Physician arrived 9:21:21 --------ALL STOP TIME OUT------ 9:21:22 Final Timeout: patient, procedure, and site verified with staff and physician. All members of the team are in agreement. 9:21:26 Right groin site verified by team. 9:21:31 Fire Safety Assessment: A--An alcohol-based skin anteseptic being used preoperatively., C--Open oxygen or nitrous oxide is being used., D--An ESU, laser, or fiber-optic light is being used. 9:21:38 Physical assessment completed. ASA score P 2 - A patient with mild systemic disease as per Jamie Ureña MD. 9:21:44 1) 90+ Normal kidney functon but urine findings or structural abnormalities or genetic trait point to kidney disease. 9:21:51 Maximum allowable contrast dose (3.7 X eGFR X 0.75)250 ml. 9:22:29 Sedation plan: TIVA Medication:Propofol 9:24:50 Refer to Anesthesia Notes for Sedation Medications was administered by Elvin Card RN; for sedation; Verbal order read back and verified. 9:28:45 Procedure started. 9:30:31 Local anesthetic to right femoral artery with Lidocaine 2% by Jamie Ureña MD.INITIAL ACCESS ONLY 9:31:01 A 5 Fr sheath was inserted into the Right Femoral artery 9:31:32 Zero performed for pressure channel P1 9:32:39 A MULTIPACK JL 4.0 5Fr catheter was advanced over the wire and used for Left Coronary Angiography. 9:32:48 Injector settings: Ml/sec: 3, Volume: 6, 9:33:07 LCA angiography performed. 9:34:22 Catheter removed. 9:34:46 A MULTIPACK 3DRC 5Fr catheter was advanced over the wire and used for Right Coronary Angiography. 9:34:52 Injector settings: Ml/sec: 3, Volume: 6, 9:35:30 RCA angiography performed. 9:35:36 ACCDominant side:Right 9:35:55 Catheter removed. 9:36:04 A MULTIPACK Pigtail 5 Fr catheter was advanced over the wire and used for LV Angiography. 9:36:11 Injector settings: Ml/sec: 5, Volume: 15, 9:37:10 LV gram done using HUTSON 9:37:15 LV hemodynamics recorded. 9:37:57 EF : 50 % 9:38:52 Catheter removed. 9:39:01 EXOSEAL 5Fr (EX500) opened to sterile field. 9:39:24 Sheath removed intact; hemostasis achieved with Exoseal to the Right Femoral artery. 9:40:06 Contrast amount:Isovue 300 65ml. 9:40:08 Procedure ended.(Physican Out) 9:40:46 Fluoroscopy time 01.60 minutes. 9:40:52 Fluoroscopy dose: 287 mGy 9:40:52 Flurop Dose total: 287 9:41:01 Dose Area Product 74955 mGy/cm. 9:41:05 Maximum allowable dose exceeded? No. 9:41:07 Sharps counted by scrub and verified by R.N. 9:41:10 Insertion/operative site no bleeding no hematoma. 9:41:17 Post-op/insertion site Right Femoral artery dressed using a 4 x 4 and Tegaderm. 9:41:22 Post right femoral artery:stable 9:41:30 Post Procedure Pulses reassessed and unchanged 9:41:37 Post-procedure physical assessment completed. ASA score P 2 - A patient with mild systemic disease as per Jamie Ureña MD. 9:41:44 Post procedure rhythm: unchanged. 9:41:49 Estimated blood loss: 5 ml 9:41:51 Post procedure instruction explained to patient.Patient verbalizes understanding. 9:41:55 Patient needs reinforcement of post procedure teaching. 9:42:05 Procedure and supply charges have been captured, reviewed, submitted and are correct. 9:42:45 Procedure Complication : No complications 9:42:49 Vital chart was stopped 9:42:53 [facility] Findings: mild to moderate CAD (<70%) 9:42:56 Operative report dictated upon procedure completion. 9:42:57 See physician's report for complete and final results. 9:43:02 Report given to Pre/Post Procedure Room. 9:43:08 Patient transfered to Pre/Post Procedure Room with Stretcher. 9:43:14 Procedure ended. 9:43:14 Full Disclosure recording stopped 9:43:17 End room use (Document Last) Device Usage Item Name Manufacture Quantity Catalog Hospital Part Current Minimal L ot# / Number Charge Number Stock Stock Serial# Code ACIST Acist 1 45378 210470 894198 237392 20 Syringe Medical (41675) Systems Inc Bag Microtek 1 2001S 146127 09802 942427 5 Decanter Medical Inc. () Medline Medline 1 [id number] 463654 13216 336373 5 Cath Pack ([id number]) ACIST Hand Acist 1 54553 445177 582050 561403 5 Control Medical (07450) Systems Inc ACIST Acist 1 80334 992193 992651 803510 5 Manifold Medical (44008) Systems Inc DIAGNOSTIC Cardinal 1 [id number] 497646 31691 678188 30 Multipack [employer] 5Fr catheter set (GS8577) Tegaderm 4 3M 1 1626W 494378 465370 832189 5 x 4 (1626W) SHEATH 5FR Terumo 1 [id number] 735224 580614 839818 5 [place] (RYQ666) EMERALD Cardinal 1 502-455 182496 147449 598253 5 Guide Wire [facility] (502-455) MULTIPACK Cardinal 1 012619 5 JL 4.0 5Fr Health catheter MULTIPACK Cardinal 1 556315 5 3DRC 5Fr Health catheter MULTIPACK Cardinal 1 125710 5 Pigtail 5 Health Fr catheter EXOSEAL 5Fr Cardinal 1 EX500 430691 166374 016899 10 (EX500) Health Signature Audit [place] Stage Time Signature Unsigned Intra-Procedure 09/03/2019 Marisabel 9:45:01 AM Ramona RT(R) (CV) Intra-Procedure 09/03/2019 Elvin 9:45:32 AM Kyaw MACIAS Intra-Procedure 09/03/2019 Jamie Ureña MD 9:50:[address] [facility] [address] [id number]
[2019-09-03] MEDS ORDERED: NITROSTAT0.4 MG SL (07:45)
[2019-09-03] MEDS ORDERED: COZAAR25 MG PO (07:45)
[2019-09-03] MEDS ORDERED: IPRAT-ALBUT 0.5-3 ML UPD (07:46)
[2019-09-03] MEDS ORDERED: STOOL SOFTENER100 M1 PO (07:47)
[2019-09-03] MEDS ORDERED: ELAVIL25 MG PO (07:48)
[2019-09-03] MEDS ORDERED: PROTONIX40 MG PO (07:48)
[2019-09-03 07:52] VITALS: BP 137/76; Ht 180.3 cm; Wt 80.9 kg
[2019-09-03 08:14] LABS: BASOPHILS 0.6 % (0-2); EOSINOPHILS 1.9 % (0-7); IMMATURE GRANULOCYTES 0.3 % (0-5); LYMPHOCYTES 49.5 % (15-50); MCH 30.8 pg (26.0-34.0); MCHC 32.6 g/dL (31.0-37.0); MCV 94.5 fL (80.0-100.0); MEAN PLATELET VOLUME 9.3 fL (7.4-10.4); MONOCYTES 6.9 % (2-11); NEUTROPHILS 40.8 % (40-80); PLATELET COUNT 229 10x3/uL (130-400); RBC 4.55 10x6/uL (4.20-6.10); RDW 13.2 % (11.5-14.5); WBC 7.3 10x3/uL (4.8-10.8)
[2019-09-03 08:35] LABS: ALT (SGPT) 16 U/L (10-68); CALC OSMOLALITY 280 mosm/kg (275-300); CALCIUM 8.8 mg/dL (8.5-10.1); CARBON DIOXIDE 27.5 mmol/L (21.0-32.0); CHLORIDE - SERUM 106 mmol/L (98-107); CHOL - HDL RATIO 2.7 ratio (2.3-4.9); CHOLESTEROL, TOTAL 122 mg/dL (0-200); CREATININE - SERUM 0.9 mg/dL (0.6-1.3); GLUCOSE 98 mg/dL (74-106); HDL CHOLESTEROL 46 mg/dL (32-96); LDL CHOLESTEROL 66 mg/dL (0-100); LDL-HDL RATIO 1.4 ratio (1.5-3.5); POTASSIUM - SERUM 4.3 mmol/L (3.5-5.1); SODIUM 141 mmol/L (136-145); TRIGLYCERIDE 52 mg/dL (30-200); UREA NITROGEN 13 mg/dL (7-18); eGFR NON AFRICAN AMERICAN > 90 mL/min (90-120)
--- NOTE | 2019-09-03 09:55 | NUR ---
REC'D TO ROOM 4 VIA STRETCHER FROM EDUCATION RN. MONITORS ESTAB. SEE CORE BLOWER. NO FAMILY AT BS. ALARMS ON AND C/L IN REACH.
--- NOTE | 2019-09-03 10:10 | NUR ---
R GROIN SITE C/D/I, NO S/S BLEEDING OR SWELLING. R FOOT WARM WITH PALP PULSES. PT AWAKENS EASILY, DENIES NEEDS. ALARMS ON AND C/L IN REACH.
--- NOTE | 2019-09-03 10:40 | NUR ---
R GROIN SITE SOFT, C/D/I, NO S/S BLEEDING OR HEMATOMA. PT RESTING QUIETLY. C/L IN REACH. VSS.
--- NOTE | 2019-09-03 10:55 | NUR ---
PT VOIDED 250 ML CLEAR, YELLOW URINE. R GROIN SITE SOFT, C/D/I. HOB ELEVATED, PT WASHED HANDS. SANDWICH TRAY AND COLA PROVIDED. PT NOTIFIED TO BE AT HOSPITAL AT 1200.
--- NOTE | 2019-09-03 11:14 | NUR ---
PT ATE ALL OF SANDWICH. R GROIN SITE C/D/I. NO S/S BLEEDING OR SWELLING. C/L IN REACH.
--- NOTE | 2019-09-03 11:48 | NUR ---
R GROIN SITE C/D/I, SOFT, NO S/S BLEEDING OR HEMATOMA. PIV D/C'D INTACT, DSG APPLIED. PT ALLOWED UP TO GET DRESSED.
--- NOTE | 2019-09-03 12:05 | NUR ---
ALL DISCHARGE INSTRUCTIONS INCLUDING RESTRICTIONS, S/S TO WATCH FOR AND SMOKING CESSATION DONE. PT D/C'D VIA WC TO PRIVATE VEHICLE WITH ALL BELONGINGS AND PAPER WORK.
== END 2019-09-03 12:05 | disposition home or self-care (01) ==
LOC: D.CATH 06:39
PROVIDERS: ATTEND Internal Medicine Cardiovascular Disease
DX: I20.0 Unstable angina (principal); R07.9 Chest pain, unspecified; I10 Essential (primary) hypertension; R06.00 Dyspnea, unspecified

== ENCOUNTER → 2020-02-04 10:58 | Outpatient (CLI) | payer MEDICARE ==
[2019-09-03 07:52] VITALS: BMI 24.8
[~2020-02-04 10:58] MED LIST changes: +COZAAR25 MG PO; +ELAVIL25 MG PO; +IPRAT-ALBUT 0.5-3 ML UPD; +NITROSTAT0.4 MG SL; +STOOL SOFTENER100 M1 PO
== END | disposition home or self-care (01) ==
LOC: D.LAB 10:58
PROVIDERS: ATTEND Internal Medicine Pulmonary Disease
DX: J44.9 Chronic obstructive pulmonary disease, unspecified (principal)

== ENCOUNTER → 2020-02-05 07:40 | Outpatient (CLI) | payer MEDICARE ==
[2019-09-03 07:52] VITALS: BMI 24.8
== END | disposition home or self-care (01) ==
LOC: D.RT 07:40
PROVIDERS: ATTEND Internal Medicine Pulmonary Disease
DX: J44.9 Chronic obstructive pulmonary disease, unspecified (principal)

== ENCOUNTER 2020-02-25 19:43 | Emergency (ER) | payer MEDICARE ==
[~2020-02-25] VITALS: Ht 180.3 cm; Wt 79.5 kg
[2020-02-25 20:28] VITALS: Ht 180.3 cm; Wt 79.5 kg
[2020-02-25 20:50] LABS: BASOPHILS 0.5 % (0-2); EOSINOPHILS 1.6 % (0-7); HEMATOCRIT 48.3 % (42.0-54.0); HEMOGLOBIN 16.1 g/dL (13.5-17.5); LYMPHOCYTES 36.3 % (15-50); MCH 31.3 pg (26.0-34.0); MCHC 33.3 g/dL (31.0-37.0); MCV 93.8 fL (80.0-100.0); MEAN PLATELET VOLUME 9.3 fL (7.4-10.4); MONOCYTES 11.9 % (2-11); NEUTROPHILS 48.7 % (40-80); PLATELET COUNT 200 10x3/uL (130-400); RBC 5.15 10x6/uL (4.20-6.10); RDW 13.8 % (11.5-14.5); WBC 9.9 10x3/uL (4.8-10.8)
[2020-02-25 20:57] LABS: APTT 26.2 SECONDS (22.8-39.4); INR 0.87 (0.85-1.17); PROTIME 11.8 SECONDS (11.6-15.0)
[2020-02-25 21:03] LABS: CALC OSMOLALITY 275 mosm/kg (275-300); CALCIUM 9.8 mg/dL (8.5-10.1); CARBON DIOXIDE 27.7 mmol/L (21.0-32.0); CHLORIDE - SERUM 102 mmol/L (98-107); GLUCOSE 113 mg/dL (74-106); POTASSIUM - SERUM 4.1 mmol/L (3.5-5.1); SODIUM 137 mmol/L (136-145); UREA NITROGEN 15 mg/dL (7-18); eGFR NON AFRICAN AMERICAN 86 mL/min (90-120)
[2020-02-25 21:08] LABS: ALBUMIN 3.7 g/dL (3.4-5.0); ALKALINE PHOSPHATASE 103 U/L (30-120); ALT (SGPT) 26 U/L (10-68); BILIRUBIN - TOTAL 0.14 mg/dL (0.2-1.3); PROTEIN - SERUM 7.7 g/dL (6.4-8.2)
[2020-02-25 21:46] VITALS: BP 142/89
== END 2020-02-25 21:46 | disposition home or self-care (01) ==
LOC: D.ER 19:43
PROVIDERS: Family Medicine
DX: K62.5 Hemorrhage of anus and rectum (principal); Z98.890 Other specified postprocedural states; I10 Essential (primary) hypertension; J44.9 Chronic obstructive pulmonary disease, unspecified; G62.9 Polyneuropathy, unspecified